=== PATIENT | male | born 1955 | race African-American/Black ===

== ENCOUNTER 2017-03-06 01:36 | Inpatient (IN) | payer OTHER ==
[~2017-03-06] VITALS: Ht 170.2 cm; Wt 71.2 kg
[2017-03-06] MEDS ORDERED: IPRATROPIUM BROMIDE (0.02%) 0.5MG/2.5ML NEB HHN STA (01:47)
[2017-03-06] MEDS ORDERED: ALBUTEROL (0.083%) 2.5MG/3ML NEB HHN STA (01:47)
[2017-03-06] MEDS ORDERED: METHYLPREDNISOLONE SOD SUCC 125 MG/2 ML VIAL IV STA (01:47)
[2017-03-06] MEDS ORDERED: MAGNESIUM 2 G PREMIX 50 ML IV ONE (02:00)
[2017-03-06 02:04] LABS: HEMATOCRIT. 33.9 % (42.0-52.0); HEMOGLOBIN. 10.5 g/dL (14.0-18.0); MEAN CORPUSCULAR HGB CONC 30.9 g/dL (31.0-37.0); MEAN CORPUSCULAR VOLUME 77.9 fL (80.0-94.0); PLATELET 134 x1000/uL (130-400); RED BLOOD CELL COUNT 4.35 mill/uL (4.7-6.1); WHITE BLOOD COUNT 12.6 x1000/uL (4.5-11.0)
[2017-03-06 02:06] LABS: CHLORIDE 104 mEq/L (98-107); INDEX HEMOLYSI 2 (1-3); INDEX ICTERIC 1 (1-4); INDEX LIPEMIC 1 (1-3)
[2017-03-06] MEDS ORDERED: SODIUM CHLORIDE 0.9% 1,000 ML IV ONE ×2 (02:07→03:00)
[2017-03-06 02:13] LABS: DIFFERENTIAL COMMENT 1
[2017-03-06] MEDS ORDERED: VANCOMYCIN 1 G PREMIX 200 ML IV ONE (02:15)
[2017-03-06] MEDS ORDERED: PIPERACILLIN/TAZ 3.375G PREMIX 50 ML IV ONE (02:15)
[2017-03-06 02:22] LABS: ALANINE AMINOTRANSFERASE 50 IU/L (13-61); ALBUMIN 3.6 g/dL (3.4-5.0); ANION GAP 20; CALCIUM 8.7 mg/dL (8.5-10.1); CARBON DIOXIDE 22 mEq/L (21-32); UREA NITROGEN BLOOD 15 mg/dL (7-21); eGFR 51 mL/min (>60)
[2017-03-06 02:47] LABS: LACTIC ACID 4.7 mmol/L (0.4-2.0)
[2017-03-06 03:30] LABS: PLATELET ESTIMATE SLIGHTLY DECREASED
[2017-03-06 03:31] LABS: NT PRO B-TYPE NATRIURETIC PEP 29229 pg/mL (5-125)
[2017-03-06] MEDS ORDERED: FUROSEMIDE 40MG/4ML VIAL IVP ONE (05:45)
[2017-03-06 08:40] VITALS: BP 134/93
[2017-03-06 09:00] VITALS: BP 134/93
[2017-03-06] MEDS ORDERED: DOCUSATE SODIUM 100MG CAPSULE PO PRN (11:45)
[2017-03-06] MEDS ORDERED: HYDROCODONE/ACETAMINOPHEN 5/325MG TABLET PO PRN (11:45)
[2017-03-06] MEDS ORDERED: DIPHENHYDRAMINE 50MG/ML VIAL IV PRN (11:45)
[2017-03-06] MEDS ORDERED: ONDANSETRON HCL 4MG/2ML VIAL IV PRN (11:45)
[2017-03-06] MEDS ORDERED: GUAIFENESIN 200MG/10ML SUGAR FREE UDC PO PRN (11:45)
[2017-03-06] MEDS ORDERED: ACETAMINOPHEN 325MG TABLET PO PRN (11:45)
[2017-03-06] MEDS ORDERED: IPRATROPIUM/ALBUTEROL 0.5-3(2.5)MG/3ML NEB INH PRN (11:45)
[2017-03-06 12:00] VITALS: BP 146/101
[2017-03-06] MEDS ORDERED: ENOXAPARIN 40MG/0.4ML SYR SUBCUT SCH (13:00)
[2017-03-06] MEDS: PIPERACILLIN/TAZ 3.375G PREMIX 50 ML IV SCH ×2 (14:58→21:31)
[2017-03-06] MEDS: CLONIDINE 0.1MG TABLET PO PRN (14:59)
[2017-03-06] MEDS: LORAZEPAM 2MG/ML CPJ IV PRN ×2 (14:59→23:54)
[2017-03-06 16:00] VITALS: BP 120/86
[2017-03-06 20:00] VITALS: BP 148/96
[2017-03-07] VITALS: BP 145/101
[2017-03-07 04:00] VITALS: BP 139/114
[2017-03-07] MEDS: CLONIDINE 0.1MG TABLET PO PRN ×2 (04:42→08:02)
[2017-03-07 05:59] LABS: HEMATOCRIT. 31.8 % (42.0-52.0); MEAN CORPUSCULAR HEMOGLOBIN 24.3 pg (28.0-32.0); MEAN CORPUSCULAR HGB CONC 31.6 g/dL (31.0-37.0); MEAN CORPUSCULAR VOLUME 76.9 fL (80.0-94.0); MEAN PLATELET VOLUME 11.7 fl (7.4-10.4); PLATELET 125 x1000/uL (130-400); RED BLOOD CELL COUNT 4.14 mill/uL (4.7-6.1); RED CELL DISTRIBUTION WIDTH 16.6 % (11.6-14.6); WHITE BLOOD COUNT 10.8 x1000/uL (4.5-11.0)
[2017-03-07 06:08] LABS: DIFFERENTIAL COMMENT 1
[2017-03-07] MEDS: PIPERACILLIN/TAZ 3.375G PREMIX 50 ML IV SCH ×3 (06:26→21:30)
[2017-03-07 07:15] LABS: ALANINE AMINOTRANSFERASE 57 IU/L (13-61); ALBUMIN 3.3 g/dL (3.4-5.0); ANION GAP 14; CALCIUM 8.7 mg/dL (8.5-10.1); CARBON DIOXIDE 24 mEq/L (21-32); CHLORIDE 104 mEq/L (98-107); INDEX HEMOLYSI 1 (1-3); INDEX ICTERIC 1 (1-4); INDEX LIPEMIC 1 (1-3); UREA NITROGEN BLOOD 26 mg/dL (7-21); eGFR > 60 mL/min (>60)
[2017-03-07 07:58] VITALS: BP 147/110
[2017-03-07] MEDS: ASPIRIN 81MG EC TABLET PO SCH (08:02)
[2017-03-07 08:18] LABS: BG BASE EXCESS 0.6 mmol/L (-2.0-2.0); BG CARBOXYHEMOGLOBIN 0.9 % (0.5-1.5); BG DEOXYHEMOGLOBIN 17.2 % (0.0-5.0); BG FRACTION INSPIRED OXYGEN 21; BG METHEMOGLOBIN 0.3 % (0.0-1.5); BG OXYGEN SATURATION 82.6 % (92.0-98.5); BG OXYHEMOGLOBIN 81.6 % (94.0-97.0); BG PCO2 29.9 mmHg (35.0-45.0); BG PH 7.504 (7.350-7.450); BG PO2 44.8 mmHg (75.0-100.0); BG SAMPLE SITE RIGHT BRACHIAL; BG TOTAL HEMOGLOBIN 11.3 g/dL (12.0-18.0); BG VENT MODE ROOM AIR
[2017-03-07] MEDS ORDERED: AMLODIPINE 10MG TABLET PO SCH (09:00)
[2017-03-07 10:31] LABS: ANISOCYTOSIS 1+
[2017-03-07 10:33] LABS: PLATELET ESTIMATE SLIGHTLY DECREASED
[2017-03-07] MEDS: FUROSEMIDE 40MG/4ML VIAL IVP SCH (11:40)
[2017-03-07 11:56] VITALS: BP 132/95
[2017-03-07] MEDS ORDERED: DILTIAZEM HCL 30MG TABLET PO SCH (12:00)
[2017-03-07] MEDS ORDERED: IOHEXOL-350 100 ML BOTTLE ONE (13:30)
[2017-03-07] MEDS ORDERED: SODIUM CHLORIDE 0.9% 10ML VIAL ONE (13:30)
[2017-03-07] MEDS ORDERED: ENOXAPARIN 60MG/0.6ML SYR SUBCUT NR (14:30)
[2017-03-07 16:20] VITALS: BP 136/104
[2017-03-07] MEDS ORDERED: DILTIAZEM HCL 60MG TABLET PO SCH ×2 (18:00→22:00)
[2017-03-07 20:00] VITALS: BP 126/93
[2017-03-08] VITALS: BP 128/104
[2017-03-08] MEDS: ENOXAPARIN 60MG/0.6ML SYR SUBCUT SCH ×2 (00:24→12:55)
[2017-03-08] MEDS: DILTIAZEM HCL 60MG TABLET PO SCH ×3 (00:24→16:16)
[2017-03-08] MEDS: CLONIDINE 0.1MG TABLET PO PRN ×2 (00:25→16:19)
[2017-03-08] MEDS ORDERED: ENOXAPARIN 60MG/0.6ML SYR SUBCUT SCH (02:00)
[2017-03-08 04:00] VITALS: BP 113/83
[2017-03-08] MEDS: PIPERACILLIN/TAZ 3.375G PREMIX 50 ML IV SCH ×3 (06:03→21:04)
[2017-03-08 07:17] LABS: ANION GAP 13; CALCIUM 8.8 mg/dL (8.5-10.1); CARBON DIOXIDE 29 mEq/L (21-32); CHLORIDE 98 mEq/L (98-107); INDEX HEMOLYSI 1 (1-3); INDEX ICTERIC 1 (1-4); INDEX LIPEMIC 1 (1-3); MAGNESIUM 2.2 mg/dL (1.8-2.4); TROPONIN I 0.08 ng/mL (0.00-0.04); UREA NITROGEN BLOOD 22 mg/dL (7-21); eGFR > 60 mL/min (>60)
[2017-03-08 07:21] LABS: HEMATOCRIT. 33.1 % (42.0-52.0); HEMOGLOBIN. 10.5 g/dL (14.0-18.0); MEAN CORPUSCULAR HEMOGLOBIN 24.3 pg (28.0-32.0); MEAN CORPUSCULAR HGB CONC 31.7 g/dL (31.0-37.0); MEAN CORPUSCULAR VOLUME 76.7 fL (80.0-94.0); MEAN PLATELET VOLUME 11.5 fl (7.4-10.4); PLATELET 131 x1000/uL (130-400); RED BLOOD CELL COUNT 4.32 mill/uL (4.7-6.1); RED CELL DISTRIBUTION WIDTH 16.1 % (11.6-14.6); WHITE BLOOD COUNT 11.5 x1000/uL (4.5-11.0)
[2017-03-08 07:22] LABS: INR 1.2; PARTIAL THROMBOPLASTIN TIME 38.5 sec (24.0-34.0); PROTHROMBIN TIME 12.6 sec
[2017-03-08 07:47] LABS: DIFFERENTIAL COMMENT 1
[2017-03-08 08:00] VITALS: BP 118/76
[2017-03-08] MEDS: ASPIRIN 81MG EC TABLET PO SCH (08:33)
[2017-03-08] MEDS: FUROSEMIDE 40MG/4ML VIAL IVP SCH (09:00)
[2017-03-08 12:00] VITALS: BP 118/76
[2017-03-08] MEDS: LORAZEPAM 2MG/ML CPJ IV PRN (12:44)
[2017-03-08 13:37] LABS: PLATELET ESTIMATE NORMAL
[2017-03-08] MEDS ORDERED: POTASSIUM CHLORIDE 20MEQ TABLET SR PO NR (14:50)
[2017-03-08 16:00] VITALS: BP 133/115
[2017-03-08 20:00] VITALS: BP 101/67
[2017-03-09] VITALS: BP 124/82
[2017-03-09] MEDS: DILTIAZEM HCL 60MG TABLET PO SCH ×2 (00:20→08:23)
[2017-03-09] MEDS: ENOXAPARIN 60MG/0.6ML SYR SUBCUT SCH ×2 (00:20→11:37)
[2017-03-09] MEDS: PIPERACILLIN/TAZ 3.375G PREMIX 50 ML IV SCH ×2 (03:25→08:24)
[2017-03-09 04:00] VITALS: BP 111/74
[2017-03-09 07:34] LABS: BG DEOXYHEMOGLOBIN 3.1 % (0.0-5.0); BG METHEMOGLOBIN 0.1 % (0.0-1.5); BG OXYGEN SATURATION 96.9 % (92.0-98.5); BG OXYHEMOGLOBIN 95.8 % (94.0-97.0); BG PCO2 39.7 mmHg (35.0-45.0); BG PH 7.466 (7.350-7.450); BG PO2 87.5 mmHg (75.0-100.0); BG SAMPLE SITE RIGHT BRACHIAL; BG TOTAL HEMOGLOBIN 10.8 g/dL (12.0-18.0); BG VENT MODE NASAL CANNULA
[2017-03-09 08:00] VITALS: BP 122/91
[2017-03-09] MEDS: FUROSEMIDE 40MG/4ML VIAL IVP SCH (08:23)
[2017-03-09] MEDS: ASPIRIN 81MG EC TABLET PO SCH (08:23)
[2017-03-09 09:23] LABS: ANION GAP 16; CALCIUM 8.6 mg/dL (8.5-10.1); CARBON DIOXIDE 27 mEq/L (21-32); CHLORIDE 98 mEq/L (98-107); INDEX HEMOLYSI 1 (1-3); INDEX ICTERIC 1 (1-4); INDEX LIPEMIC 1 (1-3); UREA NITROGEN BLOOD 18 mg/dL (7-21); eGFR > 60 mL/min (>60)
[2017-03-09 09:25] LABS: NT PRO B-TYPE NATRIURETIC PEP 5918 pg/mL (5-125)
[2017-03-09 11:42] VITALS: BP 107/77
[2017-03-09 12:00] VITALS: BP 107/77
== END 2017-03-09 12:50 | disposition home or self-care (01) | DRG 720 ==
LOC: ER 01:46 → 7WST 04:24
PROVIDERS: ADMIT Hospitalist; ATTEND Hospitalist
DX: A41.9 Sepsis, unspecified organism (principal); J96.01 Acute respiratory failure with hypoxia; I26.99 Other pulmonary embolism without acute cor pulmonale; N17.9 Acute kidney failure, unspecified; J18.9 Pneumonia, unspecified organism; I11.0 Hypertensive heart disease with heart failure; J44.0 Chronic obstructive pulmonary disease with (acute) lower respiratory infection; J45.901 Unspecified asthma with (acute) exacerbation; F03.90 Unspecified dementia, unspecified severity, without behavioral disturbance, psychotic disturbance, mood disturbance, and anxiety; I50.9 Heart failure, unspecified; D69.6 Thrombocytopenia, unspecified; I48.92 Unspecified atrial flutter; I48.91 Unspecified atrial fibrillation; J44.1 Chronic obstructive pulmonary disease with (acute) exacerbation; F17.210 Nicotine dependence, cigarettes, uncomplicated
CPT/HCPCS: 36415; 36600; 71010; 71275; 78582; 80048; 80053; 82375; 82805; 83605; 83735; 83880; 84484; 85025; 85610; 85730; 87040; 93005; 93306; 93970; 94640; 94644; 94664; 96365; 96366; 96367; 96375; 99291; A4216; A9558; J1650; J1940; J2060; J2543; J2930; J3370; J3475; J7030; J7050; J7611; J7620; Q9967

== ENCOUNTER 2017-07-07 09:04 | Inpatient (IN) | payer OTHER ==
[~2017-07-07] VITALS: Ht 172.7 cm; Wt 72.6 kg
[2017-07-07] MEDS ORDERED: SODIUM CHLORIDE 0.9% 1,000 ML IV ONE (10:21)
[2017-07-07] MEDS ORDERED: ONDANSETRON HCL 4MG/2ML VIAL IV STA (10:21)
[2017-07-07] MEDS ORDERED: PANTOPRAZOLE SODIUM 40 MG/VIAL IV STA (10:21)
[2017-07-07 10:53] LABS: BASOPHILS % 0.5 % (0.0-2.0); MEAN CORPUSCULAR HEMOGLOBIN 23.6 pg (28.0-32.0); MEAN CORPUSCULAR VOLUME 75.1 fL (80.0-94.0); MONOCYTES % 8.5 % (2.0-8.0); RED BLOOD CELL COUNT 4.67 mill/uL (4.7-6.1); RED CELL DISTRIBUTION WIDTH 16.3 % (11.6-14.6)
[2017-07-07 11:10] LABS: INR 1.3; PARTIAL THROMBOPLASTIN TIME 29.1 sec (23.4-31.0); PROTHROMBIN TIME 13.2 sec (9.4-11.6)
[2017-07-07 11:12] LABS: CARBON DIOXIDE 23 mEq/L (21-32); CHLORIDE 107 mEq/L (98-107); PLATELET ESTIMATE DECREASED; TROPONIN I 0.07 ng/mL (0.00-0.04)
[2017-07-07 11:13] LABS: PLATELET 99 x1000/uL (130-400)
[2017-07-07] MEDS ORDERED: AZITHROMYCIN 500 MG in DEXT 5% WATER 250 ML IV SCH (11:45)
[2017-07-07] MEDS ORDERED: CEFTRIAXONE 2 G PREMIX 50 ML IV ONE (11:45)
[2017-07-07] MEDS ORDERED: AMIODARONE HCL 150 MG in DEXT 5% WATER 100 ML IV ONE (11:45)
[2017-07-07] MEDS ORDERED: CLONIDINE 0.1MG TABLET PO PRN (12:00)
[2017-07-07] MEDS ORDERED: HYDROCODONE/ACETAMINOPHEN 5/325MG TABLET PO PRN (12:00)
[2017-07-07] MEDS ORDERED: ACETAMINOPHEN 325MG TABLET PO PRN (12:00)
[2017-07-07] MEDS ORDERED: ONDANSETRON HCL 4MG/2ML VIAL IV PRN (12:00)
[2017-07-07] MEDS ORDERED: DIPHENHYDRAMINE 50MG/ML VIAL IV PRN (12:00)
[2017-07-07] MEDS ORDERED: IPRATROPIUM/ALBUTEROL 0.5-3(2.5)MG/3ML NEB INH PRN (12:00)
[2017-07-07] MEDS ORDERED: MORPHINE SULFATE 4 MG/ML CPJ (NOT FOR IM USE) IV PRN (15:30)
[2017-07-07 18:00] VITALS: BP 115/89
[2017-07-07 20:00] VITALS: BP 124/96
[2017-07-07 20:03] LABS: HEMATOCRIT 32.5 % (42.0-52.0); HEMOGLOBIN 10.2 g/dL (14.0-18.0)
[2017-07-07] MEDS: DILTIAZEM HCL 30MG TABLET PO SCH (20:34)
[2017-07-07] MEDS: SODIUM CHLORIDE 0.9% 1,000 ML IV SCH (20:34)
[2017-07-07 20:44] LABS: HEPATITIS B SURFACE ANTIGEN NEGATIVE
[2017-07-07 21:12] LABS: HEPATITIS B CORE AB IGM NEGATIVE
[2017-07-07 21:13] LABS: HEPATITIS A AB IGM NEGATIVE (NEGATIVE)
[2017-07-08] VITALS: BP 117/85
[2017-07-08 01:28] LABS: HEMATOCRIT 31.8 % (42.0-52.0); HEMOGLOBIN 10.2 g/dL (14.0-18.0)
[2017-07-08 04:00] VITALS: BP 141/82
[2017-07-08] MEDS: DILTIAZEM HCL 30MG TABLET PO SCH ×3 (06:44→11:12)
[2017-07-08 07:00] LABS: BASOPHILS % 0.4 % (0.0-2.0); EOSINOPHILS % 0.1 % (0.0-5.0); HEMATOCRIT. 35.6 % (42.0-52.0); HEMOGLOBIN. 11.3 g/dL (14.0-18.0); LYMPHOCYTES % 10.2 % (20.0-50.0); MEAN CORPUSCULAR HEMOGLOBIN 23.9 pg (28.0-32.0); MEAN CORPUSCULAR VOLUME 75.7 fL (80.0-94.0); MEAN PLATELET VOLUME 12.3 fl (7.4-10.4); MONOCYTES % 8.9 % (2.0-8.0); NEUTROPHILS % 80.4 % (40.0-76.0); PLATELET 91 x1000/uL (130-400); RED BLOOD CELL COUNT 4.71 mill/uL (4.7-6.1); RED CELL DISTRIBUTION WIDTH 15.9 % (11.6-14.6)
[2017-07-08 07:38] LABS: CARBON DIOXIDE 23 mEq/L (21-32); CHLORIDE 106 mEq/L (98-107); HDL CHOLESTEROL 35 mg/dL (40-59); LDL CHOLESTEROL 60 mg/dL (5-100); TOTAL IRON BINDING CAPACITY 264 ug/dL (250-450); TROPONIN I 0.04 ng/mL (0.00-0.04)
[2017-07-08 08:00] VITALS: BP 119/90
[2017-07-08] MEDS ORDERED: PANTOPRAZOLE SODIUM 40 MG/VIAL IV SCH (09:00)
[2017-07-08] MEDS: SODIUM CHLORIDE 0.9% 1,000 ML IV SCH (09:06)
[2017-07-08] MEDS ORDERED: CEFTRIAXONE 1 G PREMIX 50 ML IV SCH (11:00)
[2017-07-08 12:00] VITALS: BP 125/100
[2017-07-08] MEDS ORDERED: AZITHROMYCIN 500 MG in DEXT 5% WATER 250 ML IV SCH (14:00)
[2017-07-08 16:00] VITALS: BP 100/74
[2017-07-08] MEDS ORDERED: DILTIAZEM HCL 30MG TABLET PO SCH (16:00)
[2017-07-08 20:00] VITALS: BP 103/82
[2017-07-08] MEDS ORDERED: HYDRALAZINE HCL 25MG TABLET PO SCH (21:00)
[2017-07-09] MEDS ORDERED: CEFTRIAXONE 1 G PREMIX 50 ML IV SCH (09:00)
[2017-07-09] MEDS ORDERED: AZITHROMYCIN 500 MG in DEXT 5% WATER 250 ML IV SCH (10:00)
== END 2017-07-08 22:05 | disposition short-term general hospital (02) | DRG 253 ==
LOC: ER 11:09 → 8WST 11:42 → ENRESERV 14:41 → CANRESERV 14:41 → ENRESERV 17:01
PROVIDERS: ADMIT Internal Medicine; ATTEND Internal Medicine
DX: K92.2 Gastrointestinal hemorrhage, unspecified (principal); J18.9 Pneumonia, unspecified organism; D69.6 Thrombocytopenia, unspecified; I48.91 Unspecified atrial fibrillation; F03.90 Unspecified dementia, unspecified severity, without behavioral disturbance, psychotic disturbance, mood disturbance, and anxiety; I10 Essential (primary) hypertension; J45.909 Unspecified asthma, uncomplicated; N18.9 Chronic kidney disease, unspecified; D64.9 Anemia, unspecified; Z87.11 Personal history of peptic ulcer disease
CPT/HCPCS: 36415; 71010; 80053; 80061; 82728; 83540; 83550; 83690; 84484; 85014; 85018; 85025; 85610; 85730; 86705; 86709; 86803; 86850; 86900; 87040; 87340; 93005; 93306; 94640; 96365; 96367; 96375; 99285; C9113; J0282; J0456; J0696; J2270; J2405; J7030; J7060; J7620